=== PATIENT | female | born 1965 | race Caucasian/White ===

== ENCOUNTER → 2018-06-11 | Day surgery (SDC) | payer BC ==
[~2018-06-11] MED LIST: HYDR-2758 PO; IV RINGERS,LACTATED 1000ML 1,000 ML IV SCH; LIDOCAINE 1% PF 2 ML VIAL. ID PRN; MIDAZOLAM HCL/PF 2 MG/2 ML VIAL. IV PRN; PROPOFOL 40 ML IV ONE; TIZA4TAB PO; fentaNYL PF VIAL 100 MCG/2 ML VIAL IV PRN
[2018-06-11 09:29] VITALS: BP 129/81
--- NOTE | 2018-06-11 23:40 | HP ---
ADMIT DATE: 06/11/2018 REFERRING PHYSICIAN: Talha Chowdhury MD REASON FOR CONSULTATION: Colorectal screening. HISTORY OF PRESENT ILLNESS: A 53-year-old male with past medical history significant for anxiety, who is seen for screening colon exam. Bowel habits are regular without diarrhea or constipation. There has been no melena and/or hematochezia. Weight and appetite are stable. Family history is unrevealing for colon polyps or colon cancer. He is otherwise without additional complaints. PAST MEDICAL HISTORY: Anxiety. ALLERGIES: None. MEDICATIONS: Hydrocodone and tizanidine. FAMILY AND SOCIAL HISTORY: Significant for breast cancer with her mother, diabetes with father and sister, hypertension with her father, and pancreatic cancer in the father. He is social drinker and smoker. REVIEW OF SYSTEMS: Per records. PHYSICAL EXAMINATION: GENERAL: A well-nourished, well-developed male. VITAL SIGNS: Temperature is 97.8, pulse 86, respirations 20. HEENT: Normocephalic and atraumatic head. Pupils and extraocular movements are not tested. Sclerae are anicteric. NECK: Supple. LUNGS: Clear. CARDIOVASCULAR: Reveals an S1, S2 without S3, S4 or appreciable murmur. ABDOMEN: Reveals soft abdomen, normal bowel sounds without appreciable hepatosplenomegaly. EXTREMITIES: Reveal no cyanosis, clubbing or edema. IMPRESSION: Colorectal screening is warranted at this time. Risks and benefits of procedure including risks of hemorrhage and perforation during the operation have been discussed with the patient who is willing to proceed. JOSE HERNANDEZ MD DR: JUNIE/sherice JOB#: [id number] / [id number]
== END | disposition home or self-care (01) ==
LOC: ENDOS 07:27
PROVIDERS: ATTEND Internal Medicine Gastroenterology
DX: Z12.11 Encounter for screening for malignant neoplasm of colon (principal); K64.0 First degree hemorrhoids; F41.9 Anxiety disorder, unspecified; Z79.899 Other long term (current) drug therapy; Z83.3 Family history of diabetes mellitus; Z82.49 Family history of ischemic heart disease and other diseases of the circulatory system; Z72.89 Other problems related to lifestyle; F17.200 Nicotine dependence, unspecified, uncomplicated; Z80.3 Family history of malignant neoplasm of breast; Z80.0 Family history of malignant neoplasm of digestive organs
CPT/HCPCS: 45378; J2704